=== PATIENT | male | born 1990 | race African-American/Black ===

== ENCOUNTER 2018-07-01 22:04 | Emergency (ER) | payer SELFPAY ==
[~2018-07-01] VITALS: Ht 182.9 cm; Wt 122.5 kg
[2018-07-01] MEDS ORDERED: NKM (22:12)
[2018-07-01 22:28] VITALS: BP 131/87
--- NOTE | 2018-07-01 22:30 | NUR ---
ER Nurse Note: Pt came from home c/o right ear pain and a sore throat since 06/29. Pt stated 08/30 pain. No difficulty swollowing, redness in ear. Pt a&ox4, VSS, no fever, no signs of distress. Pt has a cough, no phlegm. Will continue to [facility]ior.
[2018-07-01] MEDS ORDERED: CORTISPORIN EAR10 ML OTIC (23:21)
[2018-07-01] MEDS ORDERED: AMOXICILLIN500 MG ORAL (23:21)
[2018-07-01] MEDS ORDERED: IBUPROFEN600 MG ORAL (23:21)
--- NOTE | 2018-07-01 23:25 | Emergency Room Report ---
History of Present Illness General Chief Complaint: Earache Source: Patient Present Illness HPI Patient presents with complaints of right ear pain Ongoing for the past 2 days patient reports initially started with a sore throat Denies any headache denies any chest pain or shortness of breath pain to the right ear is 5 out of 10 denies any change with hearing Denies any recent water contact Denies any neck pain or photophobia denies any recent loud noise or trauma Allergies: Coded Allergies: No Known Allergies (Unverified , 07/01/18) Patient History Past Medical History: see triage record Pertinent Family History: none Reviewed Nursing Documentation: PMH: Agreed; PSxH: Agreed Nursing Documentation-PMH Past Medical History: No Stated History Review of Systems All Other Systems: negative except mentioned in HPI Physical Exam Vital Signs Date Time Temp Pulse Resp B/P (MAP) Pulse Ox O2 Delivery O2 Flow Rate FiO2 07/01/18 22:08 98.2 94 16 131/87 95 Room Air Sp02 EP Interpretation: reviewed, normal General Appearance: well appearing, no apparent distress Head: normocephalic, atraumatic Eyes: bilateral eye PERRL, bilateral eye EOMI ENT: hearing grossly normal, uvula midline, pharyngeal erythema, other - Right leg membrane appears edematous and irritated however still patent the tympanic membrane is also bulging mildly erythematous no obvious perforation Neck: full range of motion, supple, no meningismus, no bony tend Respiratory: lungs clear, normal breath sounds, no rhonchi, no respiratory distress, no retraction, no accessory muscle use Cardiovascular #1: normal peripheral pulses, regular rate, rhythm, no edema, no gallop, no JVD, no murmur Musculoskeletal: normal inspection Neurologic: oriented x3, responsive, motor strength/tone normal, sensory intact Psychiatric: mood/affect normal Skin: normal color, no rash, warm/dry, palpation normal Lymphatic: normal inspection, no adenopathy Medical Decision Making Diagnostic Impression: Primary Impression: otitis media Additional Impression: otitis externa ER Course Patient appears to have findings consistent with otitis media and otitis externa patient is given medications appropriately And will have close outpatient follow-up at this time given the exam I did not appreciate any obvious malignant otitis externa Mastoid is nontender non-boggy Last Vital Signs Date Time Temp Pulse Resp B/P (MAP) Pulse Ox O2 Delivery O2 Flow Rate FiO2 07/01/18 22:28 98.2 82 16 131/87 95 Room Air Status: unchanged Disposition: HOME, SELF-CARE Condition: Stable Scripts Ibuprofen* (MOTRIN*) 600 Mg Tablet 600 MG ORAL Q8H PRN for For Pain, #20 TAB 0 Refills Prov: Kriss Salazar DO 07/01/18 Amoxicillin* (AMOXIL*) 500 Mg Capsule 500 MG ORAL THREE TIMES A DAY, #21 CAP Prov: Kriss Salazar DO 07/01/18 Neomycin/Polymyxin B Sulf/Hc* (CORTISPORIN EAR SOLUTION*) 10 Ml Solution 2 DROP OTIC FOUR TIMES A DAY for 7 Days, #1 EA Instill in affected ear as directed for 7 days Prov: Kriss Salazar DO 07/01/18 Patient Instructions: Otitis Media, Adult, [id number], Otitis Externa Additional Instructions: Patient is provided with the discharge instructions notified to follow up with primary doctor in the next 2-3 days otherwise return to the er with any worsening symptoms. Please note that this report is being documented using [email or web address] technology. This can lead to erroneous entry secondary to incorrect interpretation by the dictating instrument. Kriss Salazar DO Jul 01, 2018 23:25
[2018-07-01 23:27] VITALS: BP 131/87
--- NOTE | 2018-07-01 23:28 | NUR ---
ER Nurse Note: Pt seen, treated, medically cleared by ERMD for discharge. Discharge instructions and prescriptions given with repeat verbalization by pt. Instructed pt to follow up with primary care provider within one week. Pt a&ox4, VSS, no signs of distress. ID band removed. Pt left with steady gait via own transporation.
== END 2018-07-01 23:30 | disposition home or self-care (01) ==
LOC: EDBD 22:04 → EMR 22:25
DX: H66.91 Otitis media, unspecified, right ear (principal); H60.91 Unspecified otitis externa, right ear; J02.9 Acute pharyngitis, unspecified
CPT/HCPCS: 99282